=== PATIENT | male | born 1995 | race Caucasian/White ===

== ENCOUNTER 2019-03-24 08:27 | Emergency (ER) | payer BC ==
[2019-03-24] MEDS ORDERED: KETOROLAC 30 MG/ML 1 ML VIAL IM STA (08:53)
[2019-03-24] MEDS: ACETAMINOPHEN TAB 500 MG TAB PO STA ×2 (08:54→09:00)
--- NOTE | 2019-03-24 08:59 | ED ---
General Adult HPI - General Chief complaint: Upper Respiratory Infection Stated complaint: Fever Time Seen by Provider: 03/24/19 08:52 Source: patient, RN notes reviewed, old records reviewed Mode of arrival: ambulatory Limitations: no limitations - History of Present Illness Initial comments: 23-year-old male presenting for evaluation of fever, sore throat, congestion. Patient was diagnosed with strep pharyngitis on Tuesday of this week. He is presenting on Tuesday morning for reevaluation. He's been on penicillin for strep pharyngitis. He developed worsening congestion and cough. He's had fevers at home. He's been taking Tylenol for relief. He reports myalgias. No vomiting or diarrhea. No abdominal pain. Patient is otherwise healthy with no chronic medical conditions. - Related Data Allergies Allergy/AdvReac Type Severity Reaction Status Date / Time No Known Allergies Allergy Verified 03/24/19 08:45 Review of Systems ROS Statement: Those systems with pertinent positive or pertinent negative responses have been documented in the HPI. ROS Other: All systems not noted in ROS Statement are negative. Past Medical History Past Medical History: No Reported History History of Any Multi-Drug Resistant Organisms: None Reported Past Surgical History: No Surgical Hx Reported Past Psychological History: No Psychological Hx Reported Smoking Status: Never smoker Past Alcohol Use History: None Reported Past Drug Use History: None Reported General Exam Limitations: no limitations General appearance: alert, in no apparent distress Head exam: Present: atraumatic, normocephalic Eye exam: Present: normal appearance, PERRL. Absent: scleral icterus, conjunctival injection, periorbital swelling, periorbital tenderness ENT exam: Present: mucous membranes moist, other (Tonsillar swelling, symmetric, no exudate) Neck exam: Present: normal inspection. Absent: tenderness, meningismus Respiratory exam: Present: normal lung sounds bilaterally. Absent: respiratory distress, wheezes Cardiovascular Exam: Present: normal rhythm, tachycardia GI/Abdominal exam: Present: soft. Absent: distended, tenderness, guarding, rebound Extremities exam: Present: normal inspection, normal capillary refill. Absent: pedal edema Neurological exam: Present: alert, oriented X3, CN II-XII intact. Absent: motor sensory deficit Psychiatric exam: Present: normal affect, normal mood Skin exam: Present: warm, dry, intact. Absent: cyanosis, diaphoretic Course Vital Signs 03/24/19 03/24/19 08:44 09:54 Temperature 102.0 F H 98.4 F Pulse Rate 121 H 88 Respiratory 20 18 Rate Blood Pressure 126/79 129/85 O2 Sat by Pulse 98 100 Oximetry Medical Decision Making - Medical Decision Making 23-year-old male presenting with cough, sore throat, congestion. Patient is febrile tachycardic on initial evaluation. He has some pharyngeal and tonsillar swelling, this is symmetric, no exudate. He is currently being treated for strep pharyngitis. He has rhinorrhea and cough. Chest x-ray negative for focal pneumonia. Influenza testing is negative. Patient will continue prescribed penicillin, he will maintain oral hydration. He will use Tylenol Motrin for fever control. He will be present with worsening or changing symptoms. - Lab Data Lab Results 03/24/19 Range/Units 09:00 Influenza Type A RNA Not Detected (Not Detectd) Influenza Type B (PCR) Not Detected (Not Detectd) Disposition Clinical Impression: Pharyngitis, Upper respiratory infection Disposition: HOME SELF-CARE Condition: Good Instructions (If sedation given, give patient instructions): Upper Respiratory Infection (ED) Additional Instructions: Please drink plenty fluids, take Tylenol and Motrin for fever control. Discontinue penicillin as prescribed. Is patient prescribed a controlled substance at d/c from ED?: No Referrals: Anny Aguirre MD [Primary Care Provider] - 1-2 days Time of Disposition: 10:16
--- NOTE | 2019-03-24 09:45 | XR ---
EXAMINATION TYPE: XR chest 2V DATE OF EXAM ORDERED: 03/24/2019 HISTORY: FEVER. REFERENCE: None. FINDINGS: The lungs are clear. Pleural spaces are clear. Heart size is normal. IMPRESSION: NORMAL CHEST.
[2019-03-24 09:55] VITALS: BP 129/85; PULSE 88; RESP 18; TEMP 98.4
== END 2019-03-24 10:21 | disposition home or self-care (01) ==
LOC: EC 08:27
DX: J02.0 Streptococcal pharyngitis (principal); R00.0 Tachycardia, unspecified
CPT/HCPCS: 87502; 71046; 99284; 96372; J1885

== ENCOUNTER → 2021-09-17 | Outpatient (CLI) | payer MEDICAID ==
--- NOTE | 2021-09-17 16:40 | CT ---
EXAMINATION TYPE: CT brain w con DATE OF EXAM: 09/17/2021 COMPARISON: None INDICATION: c/o headaches, no head injury DLP: 1133.4 mGycm, Automated exposure control for dose reduction was used. CONTRAST: 100 mL Isovue-300. [address] of the brain is performed utilizing 3 mm thick sections through the posterior fossa and 3 mm thick sections through the remaining calvarium. Study is performed within 24 hours of [facility] to the [facility]. No abnormal hyperdensity is present to suggest an acute intracranial hemorrhage. No mass lesion is evident. No acute infarcts are evident. Ventricles and sulci are appropriate for the patient age. Mucosal thickening or retention cysts are within the bilateral maxillary sinuses. There is left septa l deviation. Remaining paranasal sinuses and mastoid air cells are clear. No abnormal enhancement is evident. IMPRESSIONS: 1. No acute intracranial process. Follow-up MRI can be performed as clinically indicated. 2. Mild mucosal thickening through the maxillary sinuses.
== END | disposition home or self-care (01) ==
LOC: RADCTMAIN 15:22
PROVIDERS: ATTEND Family Medicine
DX: J34.89 Other specified disorders of nose and nasal sinuses (principal)
CPT/HCPCS: 70460; Q9967

== ENCOUNTER → 2021-10-21 | Outpatient (CLI) | payer MEDICAID ==
--- NOTE | 2021-10-21 10:17 | XR ---
EXAMINATION TYPE: XR hand complete RT DATE OF EXAM: 10/21/2021 COMPARISON: None HISTORY: Injury right thumb TECHNIQUE: 3 view right hand FINDINGS: There is a lucency at the base of the distal phalanx with intra-articular extension compati ble with a small chip fracture lateral aspect. Soft tissues appear normal. Joint spaces are preserved. No additional fractures are evident. IMPRESSION: 1. Chip fracture with intra-articular extension at the base of distal phalanx right thumb.
== END | disposition home or self-care (01) ==
LOC: RADXRMAIN 09:48
PROVIDERS: ATTEND Family Medicine
DX: S92.151A Displaced avulsion fracture (chip fracture) of right talus, initial encounter for closed fracture (principal)